=== PATIENT | female | born 1940 | race Caucasian/White ===

== ENCOUNTER → 2017-12-20 | Outpatient (CLI) | payer MEDICARE, OTHER | LOC: M RAD 08:20 | DX: K74.69 Other cirrhosis of liver (principal); K76.6 Portal hypertension; E11.9 Type 2 diabetes mellitus without complications; I48.91 Unspecified atrial fibrillation; I34.0 Nonrheumatic mitral (valve) insufficiency | CPT/HCPCS: 76700 ==